=== PATIENT | female | born 1970 | race African-American/Black ===

== ENCOUNTER 2018-02-18 14:08 | Emergency (ER) | payer SELFPAY ==
[~2018-02-18] VITALS: Ht 170.2 cm; Wt 111.1 kg
[2018-02-18 14:44] VITALS: BP 159/95
--- NOTE | 2018-02-18 15:31 | Emergency Room Report ---
History of Present Illness General Chief Complaint: Edema Source: Patient Present Illness HPI This patient states that she [place] in a [place] flight. She states that this was 3 days ago. She states that she noted during flight that her left lower extremity became swollen. She states that the the left lower extremity did have less swelling when she elevated it. She states that this was transient. She states however, that the symptoms continue. She denies pain in the leg. She denies recent illness or trauma. She denies fever or chills. She has no other complaints. Allergies: Coded Allergies: No Known Allergies (Unverified , 02/18/18) Patient History Past Medical History: none, see triage record, other - Hyperthyroid Past Surgical History: other Social History: Denies: smoking, alcohol use, drug use Last Menstrual Period: 01/23/18 Now: No Reviewed Nursing Documentation: PMH: Agreed; PSxH: Agreed Review of Systems All Other Systems: negative except mentioned in HPI Physical Exam Vital Signs Date Time Temp Pulse Resp B/P (MAP) Pulse Ox O2 Delivery O2 Flow Rate FiO2 02/18/18 14:26 98.3 60 16 159/95 97 Room Air 98.2 Sp02 EP Interpretation: reviewed, normal General Appearance: no apparent distress, alert, GCS 15, non-toxic Head: normocephalic, atraumatic Eyes: bilateral eye normal inspection, bilateral eye PERRL ENT: hearing grossly normal, normal pharynx, no angioedema, normal voice Neck: full range of motion, supple/symm/no masses Respiratory: chest non-tender, lungs clear, normal breath sounds, no respiratory distress, no retraction, no accessory muscle use, speaking full sentences Cardiovascular #1: regular rate, rhythm, no edema, edema - LLE with 2+pitting edema Gastrointestinal: normal bowel sounds, non tender, soft, non-distended, no guarding, no rebound Rectal: deferred Musculoskeletal: back normal, gait/station normal, normal range of motion, swelling - LLE 2+pitting edema Neurologic: alert, oriented x3, responsive, motor strength/tone normal, sensory intact, speech normal Psychiatric: judgement/insight normal, memory normal, mood/affect normal, no suicidal/homicidal ideation Skin: normal color, no rash, warm/dry, well hydrated Medical Decision Making Diagnostic Impression: Primary Impression: Lymphedema ER Course This patient has left lower extremity lymphedema. The patient underwent ultrasound of the left lower extremity to rule out DVT and there is no evidence of DVT. The patient had previously been on hydrochlorothiazide for fluid retention. Going to restart this and give the patient a prescription for 2 weeks. I instructed the patient to follow-up with her primary care physician to determine whether she would need to stay on hydrochlorothiazide or if she could transition off. At this time, did not identify an emergency medical condition. The patient is given close return precautions and follow-up instructions. CT/MRI/US Diagnostic Results CT/MRI/US Diagnostic Results : Imaging Test Ordered: US LLE Impression No DVT. See official report in EMR Last Vital Signs Date Time Temp Pulse Resp B/P (MAP) Pulse Ox O2 Delivery O2 Flow Rate FiO2 02/18/18 14:44 60 16 Room Air 02/18/18 14:44 98.2 159/95 97 98.2 Status: improved Disposition: HOME, SELF-CARE Condition: Improved Scripts No Active Prescriptions or Reported Meds Patient Instructions: Edema, [id number], Peripheral Edema Kenna Limon DO Feb 18, 2018 15:31
[2018-02-18] MEDS ORDERED: HYDROCHLOROTHIA25 MG ORAL (15:47)
[2018-02-18 16:10] VITALS: BP 148/91
--- NOTE | 2018-02-20 12:43 | Diagnostic Imaging Report ---
APPROVED REPORT CPT Code: 90302 Present Symptoms Comments: LEFT LEG PAIN AND SWELLING. LEFT LEG: Venous imaging reveals a patent deep venous system. There is no evidence of thrombus within the femoral or popliteal segments. The greater saphenous vein is also within normal limits. Doppler indicates normal spontaneous flow within these segments. Calf veins not visualized due to edema and patient's body habitus (overweight patientt).
== END 2018-02-18 16:15 | disposition home or self-care (01) ==
LOC: EMR 15:47
DX: I89.0 Lymphedema, not elsewhere classified (principal)
CPT/HCPCS: 93970; 99284